=== PATIENT | male | born 1990 | race Caucasian/White ===

== ENCOUNTER 2021-12-04 08:41 | Emergency (ER) | payer OTHER ==
[~2021-12-04] VITALS: Ht 185.4 cm; Wt 88.5 kg
== END 2021-12-04 11:24 | disposition home or self-care (01) ==
LOC: ED 08:41
DX: S00.83XA Contusion of other part of head, initial encounter (principal); W22.8XXA Striking against or struck by other objects, initial encounter; J45.909 Unspecified asthma, uncomplicated
CPT/HCPCS: 70450; 99283-25; A9270